=== PATIENT | female | born 1955 | race Caucasian/White ===

== ENCOUNTER 2017-01-29 15:55 | Emergency (ER) | payer MEDICAID ==
[2017-01-29 16:09] VITALS: RESP 18
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
[2017-01-29 17:41] VITALS: BP 109/66; PULSE 72; TEMP 98.2
[2017-01-29 18:08] VITALS: O2SAT 99
== END 2017-01-29 17:45 | disposition home or self-care (01) ==
LOC: C.ER 15:55
DX: S39.012A Strain of muscle, fascia and tendon of lower back, initial encounter (principal); S46.911A Strain of unspecified muscle, fascia and tendon at shoulder and upper arm level, right arm, initial encounter; V43.52XA Car driver injured in collision with other type car in traffic accident, initial encounter; Y92.414 Local residential or business street as the place of occurrence of the external cause